=== PATIENT | male | born 1950 | race Caucasian/White ===

== ENCOUNTER 2021-01-17 12:44 | Inpatient (IN) ==
[~2021-01-17 12:44] MED LIST: Buffered Lidocaine 1% SYRIN 1 ml INTRADERM ONE; Famotidine IV 10 MG/ML 2 ml VIAL (20 mg) IV ONE
[2021-01-17] MEDS ORDERED: Famotidine IV 10 MG/ML 2 ml VIAL (20 mg) ONE (13:07)
[2021-01-17] MEDS: Lactated Ringers 1000 ml BAG 1,000 ML IV SCH ×2 (13:27→20:29)
[2021-01-17] MEDS ORDERED: Ondansetron 4 mg VIAL 2 MG/ML 2 ml VIAL ONE (14:59)
[2021-01-17] MEDS ORDERED: Dexamethasone IV 4 MG/ML VIAL 1 ml VIAL ONE (14:59)
[2021-01-17] MEDS ORDERED: fentaNYL 250 mcg/5 ml 50 MCG/ML 5 ml VIAL (250 MCG) ONE (14:59)
[2021-01-17] MEDS ORDERED: Propofol 10 MG/ML 20 ML BTL ONE ×2 (14:59→18:48)
[2021-01-17] MEDS ORDERED: Rocuronium 50 mg VIAL 10 mg/ml 5 ml VIAL (50 mg) ONE (14:59)
[2021-01-17] MEDS ORDERED: Glycopyrrolate IV 0.2 MG/ML 1 ML VIAL ONE ×2 (15:02→16:52)
[2021-01-17] MEDS ORDERED: Oxymetazoline 0.05% NASAL SPR 15 ML BTL ONE (16:21)
[2021-01-17] MEDS ORDERED: fentaNYL 100 mcg/2 ml 50 MCG/ML VIAL IV PRN (16:41)
[2021-01-17] MEDS ORDERED: Ondansetron 4 mg VIAL 2 MG/ML 2 ml VIAL IV PRN (16:41)
[2021-01-17] MEDS ORDERED: Naloxone 0.4 mg VIAL 0.4 mg/ml 1 ml VIAL IV PRN (16:41)
[2021-01-17] MEDS ORDERED: Midazolam 2 mg/2 ml VIAL 1 mg/ml 2 ml VIAL (2 mg) ONE ×2 (16:53→17:51)
[2021-01-17] MEDS ORDERED: Phenylephrine 1% NASAL 15 ML BOT ONE (16:53)
[2021-01-17] MEDS ORDERED: Lidocaine 4% TOPICAL 50 ML TOP.SOLN ONE (16:53)
[2021-01-17] MEDS ORDERED: Triamcinolone Acetonide 40 mg VIAL 40 mg/ml 1 ml VIAL ONE (17:14)
[2021-01-17] MEDS ORDERED: Lidocaine 1% w EPI 1:200,000 SDV 30 ML VIAL ONE (17:14)
[2021-01-17] MEDS ORDERED: Dexmedetomidine 200 mcg/2 ml 2 ml VIAL (200 mcg) ONE (17:30)
[2021-01-17] MEDS ORDERED: Dexmedetomidine 1,000 MCG in NS 0.9% 250 ml 240 ML IV SCH (20:00)
[2021-01-17] MEDS ORDERED: Lactated Ringers 1000 ml BAG 1,000 ML IV ONE (21:02)
[2021-01-17] MEDS: fentaNYL 100 mcg/2 ml 50 MCG/ML VIAL IV SLOW PU PRN ×2 (21:19→23:43)
[2021-01-17] MEDS ORDERED: fentaNYL 100 mcg/2 ml 50 MCG/ML VIAL IV SLOW PU PRN (23:54)
[2021-01-18 04:18] LABS: ABS Lymphocytes 0.5 10^3/ul (1.0-4.8); ABS Monocytes 0.3 10^3/ul (0-0.8); ABS Neutrophils 12.7 10^3/ul (1.5-7.7); Hematocrit 42 % (42-52); Lymphocyte % 3.9 %; Mean Corpuscular HGB Conc 33 g/dL (31-36); Mean Corpuscular Hemoglobin 31 pg (27-31); Mean Corpuscular Volume 94 fL (80-94); Mean Platelet Volume 7.1 fL (7.4-10.4); Platelet Count 270 10^3/uL (150-450); Red Blood Count 4.49 10^6 /uL (4.18-5.48); Red Cell Distribution Width 13 % (10-15); White Blood Count 13.5 10^3/uL (3.5-10.8)
[2021-01-18 04:31] LABS: Phosphorus 3.2 mg/dL (2.5-5.0)
[2021-01-18] MEDS: Lactated Ringers 1000 ml BAG 1,000 ML IV ONE ×2 (05:30→06:08)
[2021-01-18] MEDS ORDERED: Lactated Ringers 500 ml BAG 500 ML IV ONE (06:04)
[2021-01-18] MEDS ORDERED: Atropine 0.1 MG/ML 10 ml SYR (1 mg) IV PUSH PRN (06:04)
[2021-01-18] MEDS ORDERED: Atropine 0.1 MG/ML 10 ml SYR (1 mg) ONE (06:13)
[2021-01-18 07:54] LABS: Albumin 3.7 g/dL (3.2-5.2); Calcium 9.3 mg/dL (8.6-10.3); Magnesium 1.9 mg/dL (1.9-2.7); Potassium 4.4 mmol/L (3.5-5.0); Total Bilirubin 0.5 mg/dL (0.2-1.0)
[2021-01-18 08:00] LABS: BUN/Creatinine Ratio 20.3 (8-20); EGFR African American 125.8 (>60); Globulin 3.6 g/dL (2-4); Total Protein 7.3 g/dL (6.4-8.9)
[2021-01-18] MEDS: fentaNYL 100 mcg/2 ml 50 MCG/ML VIAL IV SLOW PU PRN ×3 (19:11→23:27)
[2021-01-19] MEDS: fentaNYL 100 mcg/2 ml 50 MCG/ML VIAL IV SLOW PU PRN ×2 (02:33→06:01)
[2021-01-19 04:23] LABS: Albumin 3.1 g/dL (3.2-5.2); BUN/Creatinine Ratio 19.2 (8-20); Calcium 8.5 mg/dL (8.6-10.3); EGFR African American 118.4 (>60); EGFR Non-African American 97.8 (>60); Globulin 3.1 g/dL (2-4); Potassium 3.4 mmol/L (3.5-5.0); Total Bilirubin 0.5 mg/dL (0.2-1.0); Total Protein 6.2 g/dL (6.4-8.9)
[2021-01-19] MEDS ORDERED: Potassium Chloride LIQUID 20 MEQ/15 ML LIQUID PO ONE (05:11)
[2021-01-19] MEDS: Heparin 5000 UNITS/ML 1 mL VIAL SUBCUT SCH (19:53)
[2021-01-19] MEDS: ACETIC ACID 0.25% IRRIGATION SCH (20:02)
[2021-01-20 04:26] LABS: Hematocrit 37 % (42-52); Hemoglobin 12.3 g/dL (14.0-18.0); Mean Corpuscular HGB Conc 34 g/dL (31-36); Mean Corpuscular Hemoglobin 31 pg (27-31); Mean Corpuscular Volume 93 fL (80-94); Mean Platelet Volume 7.4 fL (7.4-10.4); Platelet Count 228 10^3/uL (150-450); Red Blood Count 3.94 10^6 /uL (4.18-5.48); Red Cell Distribution Width 13 % (10-15); White Blood Count 11.4 10^3/uL (3.5-10.8)
[2021-01-20 04:40] LABS: BUN/Creatinine Ratio 17.6 (8-20); Calcium 8.9 mg/dL (8.6-10.3); EGFR African American 138.7 (>60); EGFR Non-African American 114.6 (>60); Magnesium 1.8 mg/dL (1.9-2.7); Phosphorus 3.2 mg/dL (2.5-5.0); Potassium 3.8 mmol/L (3.5-5.0)
[2021-01-20] MEDS ORDERED: Magnesium Sulfate 2 gm BAG 2 GM/50 ML BAG IVPB ONE (06:16)
[2021-01-20] MEDS: Heparin 5000 UNITS/ML 1 mL VIAL SUBCUT SCH ×2 (08:42→22:06)
[2021-01-20] MEDS: ACETIC ACID 0.25% IRRIGATION SCH (11:20)
[2021-01-20] MEDS: ACETIC ACID 0.25% TOPICAL SCH (18:10)
[2021-01-21] MEDS: Heparin 5000 UNITS/ML 1 mL VIAL SUBCUT SCH ×2 (09:09→20:35)
[2021-01-21] MEDS: ACETIC ACID 0.25% TOPICAL SCH (20:32)
[2021-01-22] MEDS: ACETIC ACID 0.25% TOPICAL SCH ×4 (00:17→21:13)
[2021-01-22] MEDS: Heparin 5000 UNITS/ML 1 mL VIAL SUBCUT SCH ×2 (10:38→21:13)
[2021-01-22 12:53] LABS: ABS Eosinophils 0.1 10^3/ul (0-0.6); ABS Lymphocytes 0.9 10^3/ul (1.0-4.8); ABS Monocytes 1.3 10^3/ul (0-0.8); ABS Neutrophils 14.6 10^3/ul (1.5-7.7); Eosinophil % 0.8 %; Hematocrit 44 % (42-52); Hemoglobin 14.6 g/dL (14.0-18.0); Lymphocyte % 5.1 %; Mean Corpuscular HGB Conc 34 g/dL (31-36); Mean Corpuscular Hemoglobin 31 pg (27-31); Mean Corpuscular Volume 93 fL (80-94); Mean Platelet Volume 7.1 fL (7.4-10.4); Platelet Count 316 10^3/uL (150-450); Red Blood Count 4.68 10^6 /uL (4.18-5.48); Red Cell Distribution Width 13 % (10-15); White Blood Count 16.9 10^3/uL (3.5-10.8)
[2021-01-23 05:55] LABS: ABS Eosinophils 0.3 10^3/ul (0-0.6); ABS Lymphocytes 1.3 10^3/ul (1.0-4.8); ABS Neutrophils 7.7 10^3/ul (1.5-7.7); Eosinophil % 2.5 %; Hematocrit 37 % (42-52); Hemoglobin 12.6 g/dL (14.0-18.0); Lymphocyte % 12.8 %; Mean Corpuscular HGB Conc 34 g/dL (31-36); Mean Corpuscular Hemoglobin 32 pg (27-31); Mean Corpuscular Volume 92 fL (80-94); Mean Platelet Volume 7.3 fL (7.4-10.4); Platelet Count 282 10^3/uL (150-450); Red Cell Distribution Width 13 % (10-15); White Blood Count 10.2 10^3/uL (3.5-10.8)
[2021-01-23] MEDS: Heparin 5000 UNITS/ML 1 mL VIAL SUBCUT SCH ×2 (07:43→21:07)
[2021-01-23] MEDS: ACETIC ACID 0.25% TOPICAL SCH ×3 (07:45→19:45)
[2021-01-23 10:24] LABS: Hematocrit 39 % (42-52); Hemoglobin 12.9 g/dL (14.0-18.0)
[2021-01-23 10:36] LABS: Activated Partial Thrombo Time 26.2 seconds (26.0-38.0); INR 1.13 (0.82-1.09)
[2021-01-23] MEDS ORDERED: HYDROcodone/ACETAMIN 5/325 mg TAB PO ONE (15:10)
[2021-01-23] MEDS: Benzocaine (DENTAL) 10% TOP.GEL TOPICAL PRN ×2 (15:49→19:38)
[2021-01-23] MEDS: HYDROcodone/ACETAMIN 5/325 mg TAB PO PRN (19:36)
[2021-01-24] MEDS: HYDROcodone/ACETAMIN 5/325 mg TAB PO PRN (06:09)
[2021-01-24 07:55] LABS: ABS Eosinophils 0.2 10^3/ul (0-0.6); ABS Lymphocytes 1.1 10^3/ul (1.0-4.8); ABS Monocytes 1.2 10^3/ul (0-0.8); ABS Neutrophils 9.9 10^3/ul (1.5-7.7); Eosinophil % 1.3 %; Hematocrit 38 % (42-52); Hemoglobin 12.6 g/dL (14.0-18.0); Lymphocyte % 9.1 %; Mean Corpuscular HGB Conc 33 g/dL (31-36); Mean Corpuscular Hemoglobin 31 pg (27-31); Mean Corpuscular Volume 93 fL (80-94); Mean Platelet Volume 7.3 fL (7.4-10.4); Platelet Count 301 10^3/uL (150-450); Red Blood Count 4.12 10^6 /uL (4.18-5.48); Red Cell Distribution Width 13 % (10-15); White Blood Count 12.3 10^3/uL (3.5-10.8)
[2021-01-24 08:05] LABS: BUN/Creatinine Ratio 22.2 (8-20); Calcium 9.3 mg/dL (8.6-10.3); EGFR African American 151.5 (>60); EGFR Non-African American 125.2 (>60); Potassium 4.2 mmol/L (3.5-5.0)
[2021-01-24] MEDS: Benzocaine (DENTAL) 10% TOP.GEL TOPICAL PRN (09:47)
[2021-01-24] MEDS: Heparin 5000 UNITS/ML 1 mL VIAL SUBCUT SCH (09:47)
[2021-01-24] MEDS: ACETIC ACID 0.25% TOPICAL SCH (09:48)
[2021-01-24 11:34] VITALS: BP 104/59
== END 2021-01-24 13:27 | disposition home or self-care (01) | DRG 13 ==
LOC: OR 12:44 → ICU 19:50 → SSU 01-21 16:45
PROVIDERS: ADMIT Student in an Organized Health Care Education/Training Program; ATTEND Internal Medicine

== ENCOUNTER 2021-01-26 13:56 | Inpatient (IN) ==
[2021-01-26] MEDS ORDERED: Lactated Ringers 1000 ml BAG IV.FLUID IV ONE (14:27)
[2021-01-26 14:31] LABS: ABS Eosinophils 0.2 10^3/ul (0-0.6); ABS Lymphocytes 1.5 10^3/ul (1.0-4.8); ABS Monocytes 1.2 10^3/ul (0-0.8); ABS Neutrophils 8.1 10^3/ul (1.5-7.7); Eosinophil % 1.7 %; Hematocrit 39 % (42-52); Hemoglobin 12.9 g/dL (14.0-18.0); Lymphocyte % 13.5 %; Mean Corpuscular HGB Conc 33 g/dL (31-36); Mean Corpuscular Hemoglobin 31 pg (27-31); Mean Corpuscular Volume 93 fL (80-94); Mean Platelet Volume 7.1 fL (7.4-10.4); Platelet Count 357 10^3/uL (150-450); Red Blood Count 4.19 10^6 /uL (4.18-5.48); Red Cell Distribution Width 13 % (10-15); White Blood Count 11.1 10^3/uL (3.5-10.8)
[2021-01-26] MEDS ORDERED: Lidocaine 2% w/ EPI 1:200,000 MPF 20 ML SDV VIAL ONE ×2 (14:33→14:48)
[2021-01-26 14:37] LABS: INR 1.16 (0.82-1.09)
[2021-01-26] MEDS ORDERED: Midazolam 5 mg/5 ml VIAL 1 mg/ml 5 ml VIAL (5 mg) ONE (14:44)
[2021-01-26] MEDS ORDERED: fentaNYL 100 mcg/2 ml 50 MCG/ML VIAL ONE (14:44)
[2021-01-26 14:48] LABS: Albumin 3.6 g/dL (3.2-5.2); Albumin/Globulin Ratio 0.9 (1-3); BUN/Creatinine Ratio 23.2 (8-20); Calcium 9.7 mg/dL (8.6-10.3); EGFR African American 136.4 (>60); EGFR Non-African American 112.7 (>60); Globulin 4.2 g/dL (2-4); Potassium 3.9 mmol/L (3.5-5.0); Total Bilirubin 0.5 mg/dL (0.2-1.0); Total Protein 7.8 g/dL (6.4-8.9)
[2021-01-26] MEDS ORDERED: Lidocaine 2% PF 10 ML AMP ONE (15:03)
[2021-01-26] MEDS ORDERED: Propofol 10 MG/ML 20 ML BTL ONE (15:08)
[2021-01-26] MEDS ORDERED: Ondansetron 4 mg VIAL 2 MG/ML 2 ml VIAL ONE (15:08)
[2021-01-26] MEDS ORDERED: Lidocaine 2% PF 5 ML VIAL ONE ×2 (15:08)
[2021-01-26] MEDS: Lactated Ringers 1000 ml BAG 1,000 ML IV SCH (16:53)
[2021-01-26] MEDS ORDERED: Acetaminophen IV 1 GM/100ML 100 ML IVPB SCH (17:00)
[2021-01-26] MEDS ORDERED: Albuterol/Ipratropium NEB.SOL (2.5/0.5 MG) 3 ML NEB.SOLN INH ONE (17:46)
[2021-01-26] MEDS ORDERED: Albuterol 2.5mg/3 ml (0.083%) NEB.SOLN INH ONE (17:49)
[2021-01-26] MEDS: Morphine 2 MG/ML SYRINGE IV PRN ×2 (18:01→22:01)
[2021-01-26] MEDS: Acetaminophen IV 1 GM/100ML 100 ML IVPB SCH (22:59)
[2021-01-26] MEDS ORDERED: Lorazepam PYXIS KEY PRN (23:07)
[2021-01-26] MEDS ORDERED: LORazepam 2 mg VIAL 1 ml IV PUSH PRN (23:07)
[2021-01-27 04:51] LABS: ABS Eosinophils 0.2 10^3/ul (0-0.6); ABS Lymphocytes 1.2 10^3/ul (1.0-4.8); ABS Monocytes 0.9 10^3/ul (0-0.8); ABS Neutrophils 7.5 10^3/ul (1.5-7.7); Eosinophil % 1.8 %; Hematocrit 35 % (42-52); Hemoglobin 11.6 g/dL (14.0-18.0); Lymphocyte % 12.5 %; Mean Corpuscular HGB Conc 33 g/dL (31-36); Mean Corpuscular Hemoglobin 31 pg (27-31); Mean Corpuscular Volume 93 fL (80-94); Mean Platelet Volume 7.1 fL (7.4-10.4); Platelet Count 345 10^3/uL (150-450); Red Blood Count 3.75 10^6 /uL (4.18-5.48); Red Cell Distribution Width 13 % (10-15); White Blood Count 9.8 10^3/uL (3.5-10.8)
[2021-01-27] MEDS: Acetaminophen IV 1 GM/100ML 100 ML IVPB SCH ×2 (05:30→12:47)
[2021-01-27 09:38] LABS: Calcium 8.6 mg/dL (8.6-10.3); Magnesium 1.8 mg/dL (1.9-2.7); Potassium 4.3 mmol/L (3.5-5.0)
[2021-01-27 09:43] LABS: BUN/Creatinine Ratio 16.2 (8-20); EGFR African American 138.7 (>60); EGFR Non-African American 114.6 (>60)
[2021-01-27] MEDS ORDERED: Magnesium Sulfate 2 gm BAG 2 GM/50 ML BAG IVPB ONE (09:55)
[2021-01-27] MEDS ORDERED: ACETIC ACID 0.25% TOPICAL SCH (10:00)
[2021-01-27] MEDS: Enoxaparin 40 MG/0.4 ML SYR SUBCUT SCH (11:11)
[2021-01-27] MEDS: Morphine 2 MG/ML SYRINGE IV PRN (11:30)
[2021-01-27] MEDS ORDERED: Amoxicillin/Clavul 875/125 TAB (Augmentin 875 tab) PO SCH (15:56)
[2021-01-27] MEDS: Amoxicillin/Clavul 875/125 TAB (Augmentin 875 tab) PO SCH (17:32)
[2021-01-27] MEDS ORDERED: Morphine 2 MG/ML SYRINGE IV PRN (17:42)
[2021-01-28] MEDS: Amoxicillin/Clavul 875/125 TAB (Augmentin 875 tab) PO SCH ×2 (05:26→18:57)
[2021-01-28] MEDS: ACETIC ACID 0.25% TOPICAL SCH ×5 (07:34→18:43)
[2021-01-28] MEDS ORDERED: Morphine 2 MG/ML SYRINGE IV PRN (11:34)
[2021-01-28] MEDS: Enoxaparin 40 MG/0.4 ML SYR SUBCUT SCH (11:57)
[2021-01-28] MEDS: Benzocaine (DENTAL) 10% TOP.GEL TOPICAL PRN (15:45)
[2021-01-29] MEDS: ACETIC ACID 0.25% TOPICAL SCH ×4 (01:10→17:42)
[2021-01-29] MEDS: Benzocaine (DENTAL) 10% TOP.GEL TOPICAL PRN ×2 (03:34→22:13)
[2021-01-29] MEDS: Amoxicillin/Clavul 875/125 TAB (Augmentin 875 tab) PO SCH ×2 (06:08→17:40)
[2021-01-29] MEDS: Enoxaparin 40 MG/0.4 ML SYR SUBCUT SCH (10:19)
[2021-01-29] MEDS: Lactated Ringers 1000 ml BAG 1,000 ML IV SCH (10:38)
[2021-01-29] MEDS ORDERED: ceFAZolin 2 GM PREMIX 2 GM/50 ML BAG IVPB ONE (11:00)
[2021-01-29] MEDS ORDERED: Bupivacaine 0.25% EPI 200,000 30 ML SDV ONE (12:25)
[2021-01-29] MEDS ORDERED: Rocuronium 50 mg VIAL 10 mg/ml 5 ml VIAL (50 mg) ONE (12:35)
[2021-01-29] MEDS ORDERED: fentaNYL 250 mcg/5 ml 50 MCG/ML 5 ml VIAL (250 MCG) ONE (12:35)
[2021-01-29] MEDS ORDERED: Midazolam 2 mg/2 ml VIAL 1 mg/ml 2 ml VIAL (2 mg) ONE (12:35)
[2021-01-29] MEDS ORDERED: Phenylephrine 40 mcg/mL 10mL (400mcg) SYRINGE ONE (12:37)
[2021-01-29] MEDS ORDERED: Lidocaine 2% PF 5 ML VIAL ONE (12:37)
[2021-01-29] MEDS ORDERED: Dexamethasone IV 4 MG/ML VIAL 1 ml VIAL ONE (12:37)
[2021-01-29] MEDS ORDERED: Propofol 10 MG/ML 20 ML BTL ONE (12:37)
[2021-01-29] MEDS ORDERED: Sugammadex 500 MG/5 ML 5 ml VIAL IV PUSH ONE (13:40)
[2021-01-29] MEDS ORDERED: Ondansetron 4 mg VIAL 2 MG/ML 2 ml VIAL ONE (13:40)
[2021-01-29] MEDS ORDERED: DiMENhydriNATE IV 50 mg/ml 1 ml VIAL IV PUSH PRN (14:36)
[2021-01-29] MEDS ORDERED: Naloxone 0.4 mg VIAL 0.4 mg/ml 1 ml VIAL IV PRN (14:36)
[2021-01-29] MEDS ORDERED: Ondansetron 4 mg VIAL 2 MG/ML 2 ml VIAL IV PRN (14:36)
[2021-01-29] MEDS ORDERED: Acetaminophen IV 1 GM/100ML 1,000 MG/100 ML VIAL IVPB PRN (14:36)
[2021-01-29] MEDS ORDERED: diPHENhydraMINE IV 50 MG/ML 1 ml VIAL (BENADRYL) IV PRN (14:36)
[2021-01-29] MEDS ORDERED: fentaNYL 100 mcg/2 ml 50 MCG/ML VIAL ONE (14:44)
[2021-01-29] MEDS ORDERED: Acetaminophen IV 1 GM/100ML 100 ML ONE (14:44)
[2021-01-29] MEDS: fentaNYL 100 mcg/2 ml 50 MCG/ML VIAL IV PRN ×4 (14:46→14:59)
[2021-01-29] MEDS ORDERED: Sodium Phosphate ADULT ENEMA 133 ML BTL PR PRN (20:56)
[2021-01-30] MEDS: ACETIC ACID 0.25% TOPICAL SCH ×4 (01:14→20:05)
[2021-01-30] MEDS: Amoxicillin/Clavul 875/125 TAB (Augmentin 875 tab) PO SCH ×2 (06:08→17:59)
[2021-01-30] MEDS ORDERED: Psyllium PAK PO SCH (09:00)
[2021-01-30] MEDS: Enoxaparin 40 MG/0.4 ML SYR SUBCUT SCH (11:20)
[2021-01-31] MEDS: ACETIC ACID 0.25% TOPICAL SCH (02:52)
[2021-01-31] MEDS: Amoxicillin/Clavul 875/125 TAB (Augmentin 875 tab) PO SCH (06:04)
[2021-01-31 07:47] VITALS: BP 107/58
== END 2021-01-31 09:00 | disposition home or self-care (01) | DRG 206 ==
LOC: ED 13:56 → ICU 16:30 → SSU 01-27 15:54
PROVIDERS: ADMIT Internal Medicine; ATTEND Pediatrics

== ENCOUNTER 2021-04-09 12:07 | Inpatient (IN) ==
[2021-04-09 12:38] LABS: Hematocrit 27 % (42-52); Hemoglobin 9.3 g/dL (14.0-18.0); Mean Corpuscular HGB Conc 34 g/dL (31-36); Mean Corpuscular Hemoglobin 31 pg (27-31); Mean Corpuscular Volume 92 fL (80-94); Mean Platelet Volume 6.4 fL (7.4-10.4); Platelet Count 193 10^3/uL (150-450); Red Blood Count 2.97 10^6 /uL (4.18-5.48); Red Cell Distribution Width 13 % (10-15); White Blood Count 0.9 10^3/uL (3.5-10.8)
[2021-04-09 12:41] LABS: ABS Lymphocytes 0.1 10^3/ul (1.0-4.8); ABS Monocytes 0.2 10^3/ul (0-0.8); ABS Neutrophils 0.5 10^3/ul (1.5-7.7); Eosinophil % 1.6 %; Lymphocyte % 16.3 %; Nucleated Red Blood Cells % 0.1
[2021-04-09 12:55] LABS: Albumin 3.4 g/dL (3.2-5.2); Albumin/Globulin Ratio 1.1 (1-3); Calcium 8.7 mg/dL (8.6-10.3); EGFR African American 104.4 (>60); EGFR Non-African American 86.3 (>60); Globulin 3.1 g/dL (2-4); Potassium 3.8 mmol/L (3.5-5.0); Total Bilirubin 0.4 mg/dL (0.2-1.0); Total Protein 6.5 g/dL (6.4-8.9)
[2021-04-09] MEDS ORDERED: Ondansetron 4 mg VIAL 2 MG/ML 2 ml VIAL IV PRN (15:28)
[2021-04-09] MEDS ORDERED: Dexamethasone IV 4 MG/ML VIAL 1 ml VIAL ONE (15:34)
[2021-04-09] MEDS: NS 0.9% 1000 ml BAG 1,000 ML IV SCH (17:07)
[2021-04-09] MEDS: Enoxaparin 40 MG/0.4 ML SYR SUBCUT SCH (17:07)
[2021-04-09] MEDS: Cefepime 2 GM in Dextrose 2 GM/50 ML BAG IV SCH (17:07)
[2021-04-09] MEDS ORDERED: HYDROcodone/ACETAMIN 5/325 mg TAB PEG TUBE PRN (17:29)
[2021-04-09] MEDS ORDERED: Benzocaine (DENTAL) 10% TOP.GEL TOPICAL PRN (17:29)
[2021-04-10] MEDS: Cefepime 2 GM in Dextrose 2 GM/50 ML BAG IV SCH ×3 (00:48→16:57)
[2021-04-10] MEDS: NS 0.9% 1000 ml BAG 1,000 ML IV SCH ×2 (04:15→19:45)
[2021-04-10 05:27] LABS: Hematocrit 24 % (42-52); Hemoglobin 8.4 g/dL (14.0-18.0); Mean Corpuscular HGB Conc 35 g/dL (31-36); Mean Corpuscular Hemoglobin 32 pg (27-31); Mean Corpuscular Volume 92 fL (80-94); Mean Platelet Volume 6.8 fL (7.4-10.4); Platelet Count 178 10^3/uL (150-450); Red Blood Count 2.62 10^6 /uL (4.18-5.48); Red Cell Distribution Width 14 % (10-15); White Blood Count 0.9 10^3/uL (3.5-10.8)
[2021-04-10 05:37] LABS: ABS Lymphocytes 0.1 10^3/ul (1.0-4.8); ABS Monocytes 0.3 10^3/ul (0-0.8); ABS Neutrophils 0.5 10^3/ul (1.5-7.7); Eosinophil % 0.2 %; Lymphocyte % 14.8 %; Nucleated Red Blood Cells % 0.2
[2021-04-10 05:44] LABS: Calcium 8.3 mg/dL (8.6-10.3); EGFR African American 127.8 (>60); EGFR Non-African American 105.6 (>60); Potassium 4.2 mmol/L (3.5-5.0)
[2021-04-10 15:24] LABS: Urine Appearance Clear; Urine Bilirubin Negative (Negative); Urine Blood Negative (Negative); Urine Color Yellow; Urine Glucose Negative (Negative); Urine Ketones Negative (Negative); Urine Nitrite Negative (Negative); Urine Protein Negative (Negative); Urine Specific Gravity 1.014 (1.002-1.030); Urine Urobilinogen Negative (Negative)
[2021-04-10] MEDS: Enoxaparin 40 MG/0.4 ML SYR SUBCUT SCH (16:57)
[2021-04-11] MEDS: Cefepime 2 GM in Dextrose 2 GM/50 ML BAG IV SCH ×2 (01:00→12:00)
[2021-04-11] MEDS: NS 0.9% 1000 ml BAG 1,000 ML IV SCH ×2 (05:01→18:25)
[2021-04-11 05:27] LABS: Hematocrit 26 % (42-52); Hemoglobin 8.8 g/dL (14.0-18.0); Mean Corpuscular HGB Conc 34 g/dL (31-36); Mean Corpuscular Hemoglobin 31 pg (27-31); Mean Corpuscular Volume 92 fL (80-94); Mean Platelet Volume 6.9 fL (7.4-10.4); Platelet Count 225 10^3/uL (150-450); Red Cell Distribution Width 14 % (10-15); White Blood Count 1.4 10^3/uL (3.5-10.8)
[2021-04-11 05:28] LABS: ABS Lymphocytes 0.2 10^3/ul (1.0-4.8); ABS Monocytes 0.4 10^3/ul (0-0.8); ABS Neutrophils 0.8 10^3/ul (1.5-7.7); Lymphocyte % 13.9 %; Nucleated Red Blood Cells % 0.3
[2021-04-11 05:38] LABS: Albumin 2.9 g/dL (3.2-5.2); Calcium 8.3 mg/dL (8.6-10.3); Potassium 4.2 mmol/L (3.5-5.0); Total Bilirubin 0.3 mg/dL (0.2-1.0)
[2021-04-11 05:44] LABS: Albumin/Globulin Ratio 1.1 (1-3); EGFR African American 129.8 (>60); EGFR Non-African American 107.3 (>60); Globulin 2.6 g/dL (2-4); Total Protein 5.5 g/dL (6.4-8.9)
[2021-04-11] MEDS: Magic MouthWash1-BEN/MAAL/LIDO 180 ML BTL SWISH SPIT SCH ×3 (13:53→20:20)
[2021-04-11] MEDS: Enoxaparin 40 MG/0.4 ML SYR SUBCUT SCH (15:23)
[2021-04-12] MEDS: NS 0.9% 1000 ml BAG 1,000 ML IV SCH (04:54)
[2021-04-12] MEDS: Magic MouthWash1-BEN/MAAL/LIDO 180 ML BTL SWISH SPIT SCH (09:55)
[2021-04-12 10:17] LABS: Hematocrit 28 % (42-52); Hemoglobin 9.4 g/dL (14.0-18.0); Mean Corpuscular HGB Conc 33 g/dL (31-36); Mean Corpuscular Hemoglobin 31 pg (27-31); Mean Corpuscular Volume 94 fL (80-94); Mean Platelet Volume 6.7 fL (7.4-10.4); Platelet Count 262 10^3/uL (150-450); Red Blood Count 3.01 10^6 /uL (4.18-5.48); Red Cell Distribution Width 14 % (10-15); White Blood Count 1.8 10^3/uL (3.5-10.8)
[2021-04-12 10:41] LABS: Calcium 8.6 mg/dL (8.6-10.3); EGFR African American 136.4 (>60); EGFR Non-African American 112.7 (>60); Globulin 2.9 g/dL (2-4); Total Bilirubin 0.3 mg/dL (0.2-1.0); Total Protein 5.9 g/dL (6.4-8.9)
[2021-04-12 11:10] LABS: ABS Lymphocytes 0.2 10^3/ul (1.0-4.8); ABS Monocytes 0.4 10^3/ul (0-0.8); ABS Neutrophils 1.3 10^3/ul (1.5-7.7); Eosinophil % 1.9 %; Nucleated Red Blood Cells % 0.1
[2021-04-12 14:12] VITALS: BP 110/64
== END 2021-04-12 14:30 | disposition home or self-care (01) | DRG 810 ==
LOC: CHOA 12:07 → MED 16:05
PROVIDERS: ADMIT Internal Medicine Hematology & Oncology; ATTEND Internal Medicine Hematology & Oncology

== ENCOUNTER 2024-03-21 09:44 | Inpatient (IN) ==
[~2024-03-21 09:44] MED LIST changes: -Buffered Lidocaine 1% SYRIN 1 ml INTRADERM ONE; +Ertapenem 1 GM in NS 0.9% 50 ML BAG IVPB SCH; -Famotidine IV 10 MG/ML 2 ml VIAL (20 mg) IV ONE; +Naloxone 0.4 mg VIAL 0.4 mg/ml 1 ml VIAL IV PRN; +Ondansetron 4 mg VIAL 2 MG/ML 2 ml VIAL IV PRN; +fentaNYL 100 mcg/2 ml 50 MCG/ML VIAL IV PRN
[2024-03-21] MEDS ORDERED: fentaNYL 100 mcg/2 ml 50 MCG/ML VIAL ONE ×2 (10:20→15:37)
[2024-03-21] MEDS ORDERED: Midazolam 2 mg/2 ml VIAL 1 mg/ml 2 ml VIAL (2 mg) ONE ×3 (10:20→18:41)
[2024-03-21] MEDS ORDERED: Propofol 10 MG/ML 20 ML BTL ONE (10:22)
[2024-03-21] MEDS ORDERED: Rocuronium 50 mg VIAL 10 mg/ml 5 ml VIAL (50 mg) ONE ×3 (10:23→16:30)
[2024-03-21] MEDS ORDERED: cefTRIAXone 1 gm/50 mL D5W 1 GM/50 ML BAG IV ONE (10:27)
[2024-03-21] MEDS ORDERED: Levalbuterol 1.25MG/0.5ML NEB.SOL ONE (10:35)
[2024-03-21] MEDS: Levalbuterol 1.25MG/0.5ML NEB.SOL INH ONE (10:39)
[2024-03-21 10:41] LABS: Rapid COVID-19 Molecular Undetected (Undetected)
[2024-03-21] MEDS ORDERED: Phenylephrine 1% NASAL 15 ML BOT ONE (10:44)
[2024-03-21] MEDS: Lactated Ringers 1000 ml BAG 1,000 ML IV SCH ×2 (10:54→21:53)
[2024-03-21] MEDS: Buffered Lidocaine 1% SYRIN 1 ml INTRADERM ONE (10:54)
[2024-03-21] MEDS ORDERED: Bupivacaine 0.25% EPI 200,000 30 ML SDV ONE (12:10)
[2024-03-21] MEDS ORDERED: Lidocaine 2% PF 5 ML VIAL ONE (12:45)
[2024-03-21] MEDS ORDERED: Glycopyrrolate IV 0.2 MG/ML 1 ML VIAL ONE (14:07)
[2024-03-21] MEDS ORDERED: Phenylephrine 40 mcg/mL 10mL (400mcg) SYRINGE ONE ×2 (14:33→14:49)
[2024-03-21] MEDS ORDERED: Sterile Water for Inj 10 ML ONE (15:10)
[2024-03-21] MEDS ORDERED: Dexamethasone IV 4 MG/ML VIAL 1 ml VIAL ONE (15:49)
[2024-03-21] MEDS ORDERED: Ondansetron 4 mg VIAL 2 MG/ML 2 ml VIAL ONE (15:49)
[2024-03-21] MEDS ORDERED: Albumin Human 5% 0 GM/0 ML BTL IV ONE (16:30)
[2024-03-21] MEDS ORDERED: Albumin Human 5% 25.0 GM/500 ML BTL IV ONE (17:06)
[2024-03-21] MEDS ORDERED: HYDROmorphone 0.5 MG/0.5 ML SYRINGE ONE (18:08)
[2024-03-21] MEDS ORDERED: ACETAMINOPHEN IV PRN (19:38)
[2024-03-21] MEDS: fentaNYL INFUSION 50 mcg/mL VL 2,500 MCG/50 ML VIAL IV SCH (19:59)
[2024-03-21] MEDS: Famotidine IV 10 MG/ML 2 ml VIAL (20 mg) IV SLOW PU SCH (20:00)
[2024-03-21] MEDS: Enoxaparin 40 MG/0.4 ML SYR SUBCUT SCH (20:00)
[2024-03-21] MEDS ORDERED: Propofol 10 mg/ml 100 ML BTL 1,000 MG/100 ML BTL IV SCH (20:00)
[2024-03-21] MEDS: Dexmedetomidine 1,000 MCG in NS 0.9% 250 ml 240 ML IV SCH (20:06)
[2024-03-21] MEDS ORDERED: Zosyn per Pharmacy NOTE FOLLOW UP SCH (21:00)
[2024-03-21] MEDS: Chlorhexidine MOUTHWASH 0.12% 15 ML UDC TOPICAL SCH (21:42)
[2024-03-21 21:43] LABS: ABS Lymphocytes 0.1 10^3/uL (1.0-4.8); ABS Monocytes 0.3 10^3/uL (0.0-1.1); ABS Neutrophils 9.6 10^3/uL (1.5-7.6); Hematocrit 26.9 % (38-53); Lymphocyte % 1.3 %; Mean Corpuscular Hemoglobin 31.6 pg (27-33); Mean Corpuscular Hgb Conc 33.5 g/dL (31-36); Mean Corpuscular Volume 94.5 fL (80-97); Mean Platelet Volume 6.8 fL (7.5-11.2); Platelet Count 215 10^3/uL (150-450); Red Blood Count 2.84 10^6/uL (4.06-5.63); Red Cell Distribution Width 15.2 % (12-17); White Blood Count 10.1 10^3/uL (3.6-10.2)
[2024-03-21] MEDS ORDERED: Chlorhexidine MOUTHWASH 0.12% 15 ML UDC SWISH SPIT SCH (22:00)
[2024-03-21 22:01] LABS: PCO2 Arterial 41 mmHg (35-45); PO2 Arterial 226 mmHg (80-100); Resp Rate 14
[2024-03-21 22:02] LABS: Albumin 3.3 g/dL (3.2-5.2); Albumin/Globulin Ratio 1.4 (1-3); Calcium 7.6 mg/dL (8.6-10.3); Creatinine, Serum 0.72 mg/dL (0.67-1.17); Globulin 2.4 g/dL (2-4); Magnesium 1.5 mg/dL (1.9-2.7); Phosphorus 2.9 mg/dL (2.5-5.0); Potassium 3.1 mmol/L (3.5-5.0); Total Bilirubin 0.6 mg/dL (0.2-1.0); Total Protein 5.7 g/dL (6.4-8.9); eGFR CKD-EPI 95.3 (>60)
[2024-03-21] MEDS: Magnesium Sulfate 2 gm BAG 2 GM/50 ML BAG IVPB ONE (22:26)
[2024-03-21] MEDS: KCL 20 MEQ/100 ML IVPREMIX 20 MEQ/100 ML BAG IV SCH (22:28)
[2024-03-21] MEDS: Magnesium Sulfate 2 gm BAG 2 GM/50 ML BAG ONE (22:30)
[2024-03-21] MEDS: KCL 20 MEQ/100 ML IVPREMIX 40 MEQ/200 ML BAG ONE (22:30)
[2024-03-21] MEDS: Magnesium Sulfate IV 1GM/100ML 1 GM/100 ML BAG IV ONE (23:28)
[2024-03-22 05:15] LABS: ABS Lymphocytes 0.2 10^3/uL (1.0-4.8); ABS Monocytes 0.5 10^3/uL (0.0-1.1); ABS Neutrophils 12.4 10^3/uL (1.5-7.6); ABS Nucleated RBC 0.01 10^3/ul; Hematocrit 25.5 % (38-53); Hemoglobin 8.4 g/dL (13.2-16.3); Lymphocyte % 1.4 %; Mean Corpuscular Hemoglobin 31.3 pg (27-33); Mean Corpuscular Hgb Conc 33.2 g/dL (31-36); Mean Corpuscular Volume 94.4 fL (80-97); Platelet Count 197 10^3/uL (150-450); Red Cell Distribution Width 15.4 % (12-17); White Blood Count 13.1 10^3/uL (3.6-10.2)
[2024-03-22 06:01] LABS: Anion Gap 10 mmol/L (2-16); Blood Urea Nitrogen 16 mg/dL (6-24); CO2 Carbon Dioxide 24 mmol/L (22-32); Calcium 7.5 mg/dL (8.6-10.3); Chloride 103 mmol/L (101-111); Creatinine, Serum 0.85 mg/dL (0.67-1.17); Glucose 172 mg/dL (70-100); Magnesium 2.3 mg/dL (1.9-2.7); Potassium 3.9 mmol/L (3.5-5.0); Sodium 137 mmol/L (135-145); eGFR CKD-EPI 90.6 (>60)
[2024-03-22] MEDS: Piperacillin/Tazobac 3.375 BAG 3.375 GM/100 ML BAG IV ONE (06:29)
[2024-03-22] MEDS: KCL 20 MEQ/100 ML IVPREMIX 20 MEQ/100 ML BAG IV SCH (08:09)
[2024-03-22] MEDS: Enoxaparin 40 MG/0.4 ML SYR SUBCUT SCH (08:56)
[2024-03-22] MEDS ORDERED: fentaNYL 100 mcg/2 ml 50 MCG/ML VIAL IV SLOW PU PRN (10:00)
[2024-03-22] MEDS: ZOSYN 3.375 GM Q8H per EXTENDED INFUSION IV SCH (11:43)
[2024-03-22] MEDS: Propofol 10 MG/ML 20 ML BTL ONE (11:49)
[2024-03-22] MEDS: EPINEPHrine,Rac 2.25% NEB.SOL 0.5 ML INH ONE (11:59)
[2024-03-22] MEDS: Acetaminophen IV 1 GM/100ML 1,000 MG/100 ML BAG IV PRN (12:00)
[2024-03-22] MEDS: Ondansetron 4 mg VIAL 2 MG/ML 2 ml VIAL IV PRN (13:34)
[2024-03-22 14:52] LABS: % Iron Saturation 12 % (15-55); .Transferrin 115 mg/dL (203-362); Iron < 20 ug/dL (50-212); Total Iron Binding Capacity 161 mcg/dL (250-450); Unsaturated Iron Binding 141 ug/dL
[2024-03-23] MEDS: guaiFENesin 100 mg/5 ml LIQ unit dose cup PO PRN ×3 (00:34→19:52)
[2024-03-23] MEDS: Morphine 4 MG/ML VIAL (1 ml) IV ONE (01:10)
[2024-03-23 04:26] LABS: ABS Basophils 0.1 10^3/uL (0.0-0.1); ABS Lymphocytes 0.3 10^3/uL (1.0-4.8); ABS Monocytes 0.4 10^3/uL (0.0-1.1); ABS Neutrophils 13.2 10^3/uL (1.5-7.6); Eosinophil % 0.1 %; Hematocrit 25.1 % (38-53); Hemoglobin 8.4 g/dL (13.2-16.3); Lymphocyte % 1.9 %; Mean Corpuscular Hemoglobin 31.2 pg (27-33); Mean Corpuscular Hgb Conc 33.4 g/dL (31-36); Mean Corpuscular Volume 93.4 fL (80-97); Mean Platelet Volume 6.7 fL (7.5-11.2); Platelet Count 239 10^3/uL (150-450); Red Blood Count 2.69 10^6/uL (4.06-5.63); Red Cell Distribution Width 15.7 % (12-17)
[2024-03-23 05:01] LABS: Calcium 7.8 mg/dL (8.6-10.3); Creatinine, Serum 1.23 mg/dL (0.67-1.17); Potassium 4.1 mmol/L (3.5-5.0); eGFR CKD-EPI 61.2 (>60)
[2024-03-23] MEDS: EPINEPHrine,Rac 2.25% NEB.SOL 0.5 ML INH PRN (06:18)
[2024-03-23] MEDS: Morphine 2 MG/ML SYRINGE IV PRN (09:45)
[2024-03-23] MEDS: Lactated Ringers 1000 ml BAG 1,000 ML IV SCH (11:16)
[2024-03-24 05:34] LABS: Hematocrit 27.5 % (38-53); Mean Corpuscular Hemoglobin 30.7 pg (27-33); Mean Corpuscular Hgb Conc 32.6 g/dL (31-36); Mean Corpuscular Volume 94.2 fL (80-97); Mean Platelet Volume 6.9 fL (7.5-11.2); Platelet Count 264 10^3/uL (150-450); Red Blood Count 2.92 10^6/uL (4.06-5.63); Red Cell Distribution Width 15.7 % (12-17); White Blood Count 12.5 10^3/uL (3.6-10.2)
[2024-03-24 06:02] LABS: Calcium 8.3 mg/dL (8.6-10.3); Creatinine, Serum 1.29 mg/dL (0.67-1.17); Potassium 4.1 mmol/L (3.5-5.0); eGFR CKD-EPI 57.8 (>60)
[2024-03-24] MEDS: Lactated Ringers 1000 ml BAG 1,000 ML IV ONE (12:44)
[2024-03-24] MEDS: Acetaminophen IV 1 GM/100ML 1,000 MG/100 ML BAG IV SCH (12:49)
[2024-03-24] MEDS: Acetylcysteine INH SOL (RT) 200 MG/ML 4 ML VIAL INH ONE ×4 (12:50→19:57)
[2024-03-24] MEDS: Albuterol 2.5mg/3 ml (0.083%) NEB.SOLN INH ONE ×3 (12:50→17:10)
[2024-03-24] MEDS: guaiFENesin 100 mg/5 ml LIQ unit dose cup PO SCH (12:53)
[2024-03-24] MEDS ORDERED: Acetylcysteine INH SOL (RT) 200 MG/ML 4 ML VIAL INH ONE (18:00)
[2024-03-24] MEDS ORDERED: Zosyn per Pharmacy NOTE FOLLOW UP SCH (18:00)
[2024-03-24] MEDS ORDERED: Albuterol (2.5 MG) 0.5 % CONC 0.5 ML NEB.SOLN INH ONE (18:00)
[2024-03-24] MEDS: Albuterol/Ipratropium NEB.SOL (2.5/0.5 MG) 3 ML NEB.SOLN INH ONE (19:57)
[2024-03-24] MEDS: NS 0.9% 1000 ml BAG 1,000 ML IV SCH (20:46)
[2024-03-24] MEDS: Piperacillin/Tazobac 3.375 BAG 3.375 GM/100 ML BAG IV ONE (20:51)
[2024-03-24] MEDS: ZOSYN 3.375 GM Q8H per EXTENDED INFUSION IV SCH (21:43)
[2024-03-25] MEDS: ZOSYN 3.375 GM Q8H per EXTENDED INFUSION IV SCH (00:38)
[2024-03-25 05:10] LABS: ABS Basophils 0.1 10^3/uL (0.0-0.1); ABS Lymphocytes 0.2 10^3/uL (1.0-4.8); ABS Monocytes 0.5 10^3/uL (0.0-1.1); ABS Neutrophils 19.1 10^3/uL (1.5-7.6); Eosinophil % 0.2 %; Hematocrit 28.4 % (38-53); Hemoglobin 9.1 g/dL (13.2-16.3); Lymphocyte % 1.2 %; Mean Corpuscular Hemoglobin 30.6 pg (27-33); Mean Corpuscular Hgb Conc 32.1 g/dL (31-36); Mean Corpuscular Volume 95.6 fL (80-97); Mean Platelet Volume 6.8 fL (7.5-11.2); Platelet Count 305 10^3/uL (150-450); Red Blood Count 2.97 10^6/uL (4.06-5.63); Red Cell Distribution Width 15.9 % (12-17); White Blood Count 19.9 10^3/uL (3.6-10.2)
[2024-03-25 05:52] LABS: Calcium 8.4 mg/dL (8.6-10.3); Creatinine, Serum 1.18 mg/dL (0.67-1.17); Potassium 4.3 mmol/L (3.5-5.0); eGFR CKD-EPI 64.3 (>60)
[2024-03-25] MEDS: NS 0.9% 1000 ml BAG 1,000 ML IV SCH (11:57)
[2024-03-25] MEDS: Acetaminophen IV 1 GM/100ML 1,000 MG/100 ML BAG IV SCH (20:50)
[2024-03-26 06:03] LABS: ABS Eosinophils 0.2 10^3/uL (0.0-0.5); ABS Lymphocytes 0.3 10^3/uL (1.0-4.8); ABS Monocytes 0.6 10^3/uL (0.0-1.1); ABS Neutrophils 11.8 10^3/uL (1.5-7.6); Eosinophil % 1.7 %; Hematocrit 24.9 % (38-53); Hemoglobin 8.1 g/dL (13.2-16.3); Mean Corpuscular Hemoglobin 30.5 pg (27-33); Mean Corpuscular Hgb Conc 32.3 g/dL (31-36); Mean Corpuscular Volume 94.2 fL (80-97); Mean Platelet Volume 6.8 fL (7.5-11.2); Platelet Count 294 10^3/uL (150-450); Red Blood Count 2.65 10^6/uL (4.06-5.63); Red Cell Distribution Width 15.6 % (12-17); White Blood Count 12.9 10^3/uL (3.6-10.2)
[2024-03-26 06:17] LABS: Calcium 8.3 mg/dL (8.6-10.3); Creatinine, Serum 0.98 mg/dL (0.67-1.17); eGFR CKD-EPI 80.4 (>60)
[2024-03-27 06:12] LABS: ABS Eosinophils 0.4 10^3/uL (0.0-0.5); ABS Lymphocytes 0.3 10^3/uL (1.0-4.8); ABS Monocytes 0.6 10^3/uL (0.0-1.1); ABS Neutrophils 7.2 10^3/uL (1.5-7.6); Eosinophil % 5.1 %; Hematocrit 25.1 % (38-53); Hemoglobin 8.3 g/dL (13.2-16.3); Lymphocyte % 3.5 %; Mean Corpuscular Hemoglobin 31.1 pg (27-33); Mean Corpuscular Hgb Conc 33.3 g/dL (31-36); Mean Corpuscular Volume 93.4 fL (80-97); Platelet Count 339 10^3/uL (150-450); Red Blood Count 2.68 10^6/uL (4.06-5.63); Red Cell Distribution Width 15.7 % (12-17); White Blood Count 8.5 10^3/uL (3.6-10.2)
[2024-03-27 09:59] LABS: Calcium 8.4 mg/dL (8.6-10.3); Creatinine, Serum 0.77 mg/dL (0.67-1.17); Magnesium 1.6 mg/dL (1.9-2.7); Potassium 3.7 mmol/L (3.5-5.0); eGFR CKD-EPI 93.4 (>60)
[2024-03-27] MEDS: Acetylcysteine INH SOL (RT) 200 MG/ML 4 ML VIAL INH ONE (10:29)
[2024-03-27] MEDS: Albuterol/Ipratropium NEB.SOL (2.5/0.5 MG) 3 ML NEB.SOLN INH PRN (10:30)
[2024-03-27] MEDS: Magnesium Sulf 4 GM/100 ML IV 4,000 MG/100 ML BAG IVPB ONE (14:18)
[2024-03-27] MEDS: Amoxicillin/Clavul 500/125 TAB (Augmentin 500 mg tab) PO SCH (21:07)
[2024-03-28] MEDS: Albuterol/Ipratropium NEB.SOL (2.5/0.5 MG) 3 ML NEB.SOLN INH ONE (15:49)
[2024-03-29 10:29] VITALS: BP 111/72
== END 2024-03-29 12:18 | disposition home or self-care (01) | DRG 673 ==
LOC: AA 09:44 → SUATTDRO 09:44 → ICU 19:01 → SSU 03-23 19:40
PROVIDERS: ADMIT Surgery; ATTEND Surgery